=== PATIENT | male | born 1990 | race African-American/Black ===

== ENCOUNTER 2017-03-30 10:15 | Emergency (ER) | payer SELFPAY, OTHER ==
[2017-03-30] MEDS: HYDROcodone/APAP 5/325MG 1 TAB TABLET PO ×2 (11:28)
[2017-03-30] MEDS: NAPROXEN 500 MG TABLET PO ×2 (11:28)
== END 2017-03-30 11:35 | disposition home or self-care (01) ==
LOC: ER 10:15
DX: S93.401A Sprain of unspecified ligament of right ankle, initial encounter (principal); X50.1XXA Overexertion from prolonged static or awkward postures, initial encounter; Y93.89 Activity, other specified; Y92.89 Other specified places as the place of occurrence of the external cause; Y99.8 Other external cause status
CPT/HCPCS: 73610; 99283; 99284

== ENCOUNTER 2017-07-01 17:41 | Emergency (ER) | payer SELFPAY | END 2017-07-01 19:02 | disposition home or self-care (01) | LOC: ER 19:02 | DX: L03.113 Cellulitis of right upper limb (principal) | CPT/HCPCS: 99283 ==